=== PATIENT | female | born 1995 | race African-American/Black ===

== ENCOUNTER 2024-05-27 14:44 | Inpatient (IN) ==
[2024-05-27] MEDS ORDERED: LIDOCAINE 1% LOCAL 20 ML VIAL INFIL PRN (15:25)
[2024-05-27 15:33] LABS: Creatinine Urine Random 28.9 mg/dl; Total Protein Urine Random 57.5 mg/dl (0-11.9)
--- NOTE | 2024-05-27 15:34 | History & Physical Report ---
Date of Service May 27, 2024 Assessment & Plan (1) with 36 completed weeks gestation: (2) Pre-eclampsia during in third trimester, antepartum: Plan Fetus category one. Severe features per blood pressure. Plan to treat blood pressures acutely with IV labetolol and then start mag for seizure prophylaxis. Labs all returned normal except for pro/expanding machine operator was 2.0 . Haro bulb placed successfully for cervical ripening. Will start with low dose pitocin. bps imp roving with labetolol, will monitor closely. Plan discussed in detail with patient and fob. Patient and fob express understanding of the situation and recommendation for delivery given concern for severe features and concern for eclampsia. Discussed this risk at this ga is outweighed by the potential risk of prematurity for the baby. Peds aware. Questions asked and answered to the best of my ability. Discussed potential time line and variability of this. When she has pain can discuss options. she was hoping for an unmedicated delivery. Empathized with her feelings as none of what is happening was part of her plan for the delivery. History of Present Illness Chief Complaint: elevated blood pressure Primary Care Provider: Anahi Williamson MD Patient is a [id number] at 36 2/7 weeks who presents to labor and delivery from the office. Patient came in for her 36 week scheduled visit. Patient feels fine today but yesterday had a h/a , vision changes and n/v. Notes some slight increase in swelling. BP at the office was 172/100 with repeat after rest of 152/98. She dipped +2 protein. Here she continues to note that she feels well. Denies paris/vision changes/n/v/ruq pain. Notes some mild swelling. Dipped +2 here as well. Pr essures here at rest and lying in bed ranging 160-205/98-127. Labs are pending. Given severe pressures and ga of 36 2/7 weeks, plan for iol. Will treat blood pressure acutely with labetolol and start mag prophylaxis given severe blood pressures. Peds aware. GBS unknown and pending currently. and Delivery Plans Positive Syphilis Test (RPR) at NOB--titer 1:4 * Confirmatory test Negative * Repeat in 6 weeks & in 3rd Trimester--negative for both T pall AB neg 04/08, T pall fta-abs neg 12/06 adn 01/10 covid at 24wks--rec asa qd. OB Labs: Blood Type O Positive 11/16/23 Antibody Screen NEGATIVE 11/16/23 Hgb 11.2 g/dl (12.0-16.0) L 04/04/24 Hct 34.7 % (37.0-47.0) L 04/04/24 MCV 90.7 fL (80.0-100.0) 03/08/24 Plt Count 178 K/uL (130-400) 03/08/24 Rubella IgG Antibody Immune (Immune) 11/16/23 RPR Reactive (Nonreactive) A 11/16/23 Treponema pallidum Ab Negative (Negative) 04/04/24 T.pallidum Ab (FTA-ABS) Nonreactive (Nonreactive) 01/11/24 Hep Bs Antigen NON-REACTIVE (NON-REACTIVE) 11/16/23 Hepatitis C Ab (EIA) NON-REACTIVE (NON-REACTIVE) 11/16/23 HIV (1&2) Ag & Ab Conf NON-REACTIVE (NON-REACTIVE) 11/16/23 Glucose 1 Hr 50 gm 129 mg/dl (70-130) 04/04/24 OB Optional Labs: Chlamydia trachomatis RNA Not Detected (NotDetected) 11/16/23 Neisseria gonorrhoeae RNA Not Detected (NotDetected) 11/16/23 Allergies Allergy/AdvReac Type Severity Reaction Status Date / Time No Known Allergies Allergy Verified 05/27/24 13:23 Home Medications Medication Instructions Recorded Confirmed Type ddzpopzc-vtt-Ad-FA PO 11/08/23 05/27/24 History [ Plus] Patient History Medical History Varicella vaccination Positive test Missed Surgical History No pertinent past surgical history Family History Denies family history of Ovarian cancer Breast cancer Colorectal cancer Social History Smoking Status: Never smoker Second Hand Exposure: No; Do You Dip or Chew Tobacco: No; Hx Alcohol Use: No Hx Substance Use: No Preferred Language: [place] Communication Ability: Effective Production Line Worker Required: No Beliefs That Will Affect Care: None marital status: marital status details: Madi Mao (25) [phone] Current Living Situation: Spouse Current Living Situation Comment: Lives with spouse and mother in law, 1 dog current occupational status: employed current occupation: Daycare worker Other Information That Helps Us Care for You: No Feels Safe at Home: Yes Safety Concerns: Feels Safe At This Time Physical Exam Physical Exam: h/h 13/38.1, plts 196, urine pro/expanding machine operator 2.0, ast 18, alt 13, expanding machine operator 0.85 (0.62) Constitutional: WD/WN, vitals as above Cardiovascular: Extremities: + edema (tr); no calf tenderness Gastrointestinal (Abdomen): soft, nt, nd, no ruq tenderness Psychiatric: A+Ox3, euthymic affect Genitourinary: cx--ft/50/-2/firm/med toco--none efm--130s wtih mod variability, accels present to 150s, no decels Had discussed cervical ripening methods and patient is ok with haro bulb. r/b/se discussed. speculum placed, cx visualized, haro placed through cervix. Inflated with 30cc sterile water. Tolerated well. Results & Data Vital Signs (Past 12 Hours) Vital Signs Pulse BP 05/27/24 15:14 64 05/27/24 15:14 178/116 H 05/27/24 15:13 75 05/27/24 15:13 189/127 H 05/27/24 15:13 75 05/27/24 15:13 205/128 H 05/27/24 14:51 70 160/98 H Coding Level of Care Code None Diagnoses with 36 completed weeks gestation Z3A.36 Pre-eclampsia during in third trimester, antepartum O14.93 CPT Codes Misx Procedure Codes - 29028 Placement of cervical dilator: 17198 Placement of cervical dilator ([id number])
[2024-05-27] MEDS: LACTATED RINGER'S 1,000 ML IV SCH (15:35)
[2024-05-27] MEDS: LABETALOL HCL IV 5 MG/ML 20ML IV STA ×4 (15:35→18:31)
[2024-05-27] MEDS: MAGNESIUM SULFATE / WTR 40 GM/1,000 ML BAG IV SCH (15:37)
[2024-05-27] MEDS: MAG SULFATE 4GM BOLUS FROM BAG IV ONE (15:38)
[2024-05-27] MEDS: BETAMETH SOD PHOS/ACETATE IA 6 MG/ML ONE (15:39)
[2024-05-27] MEDS: BETAMETH SOD PHOS/ACETATE IA 6 MG/ML IM STA (15:40)
[2024-05-27] MEDS: MAGNESIUM SULFATE 40GM / WTR 1,000 ML BAG IV ONE (15:40)
[2024-05-27 15:41] LABS: Basophils # (auto) 0.05 K/uL (0.00-0.20); Basophils % (auto) 0.4 %; Eosinophils # (auto) 0.06 K/uL (0.00-0.50); Eosinophils % (auto) 0.5 %; Hematocrit (blood only) 38.1 % (37.0-47.0); Immature Granulocytes # (auto) 0.06 K/uL (0.01-0.20); Immature Granulocytes % (auto) 0.5 %; Lymphocytes # (auto) 2.68 K/uL (1.20-3.40); Lymphocytes % (auto) 23.5 %; Mean Corpuscular Hemoglobin 29.6 pg (25.0-34.0); Mean Corpuscular Hgb Conc 34.1 g/dL (32.0-36.0); Mean Corpuscular Volume 86.8 fL (80.0-100.0); Mean Platelet Volume 11.3 fL (9.4-12.4); Monocytes # (auto) 0.98 K/uL (0.11-0.59); Monocytes % (auto) 8.6 %; Neutrophils # (auto) 7.59 K/uL (1.40-6.50); Neutrophils % (auto) 66.5 %; Platelet Count 196 K/uL (130-400); RDW Coefficient of Variation 14.3 % (11.5-14.5); RDW Standard Deviation 45.3 fL (36.4-46.3); Red Blood Count 4.39 M/uL (4.20-5.40); White Blood Count 11.42 K/ul (4.8-10.8)
[2024-05-27] MEDS: LABETALOL HCL IV 5 MG/ML 20ML IV ONE (15:41)
[2024-05-27 15:47] LABS: Albumin Globulin Ratio 1.1 (0.9-2); Albumin Level 3.2 gm/dl (3.4-5.0); BUN Creatinine Ratio 16.5 (10-20); Bilirubin,Total 0.3 mg/dl (0.2-1.0); Calcium 8.9 mg/dl (8.6-10.3); Creatinine Clr Calc Pharmacy 115.8 ml/min; Globulin 2.9 gm/dl (2.5-4.0); Potassium 4.4 mmol/L (3.5-5.1); Total Protein 6.1 gm/dl (6.0-8.3)
[2024-05-27] MEDS: OXYTOCIN 30 UNITS/NSS 30 UNITS/500 ML BAG IV PRN (17:24)
[2024-05-27] MEDS: PENICILLIN GK 6 MU in SODIUM CHLORIDE 0.9% 250 ML IV STA (17:57)
[2024-05-27] MEDS: PENICILLIN GK 3 MU in DEXTROSE 5% 100 ML IV PRN (22:06)
[2024-05-27] MEDS ORDERED: ACETAMINOPHEN 325 MG TAB PO PRN (22:25)
--- NOTE | 2024-05-27 23:00 | Anesthesiology Consultation ---
Date of Service May 27, 2024 Assessment & Plan (1) Encounter for pre-operative examination: Chart Review Chart Review: Acceptable Risk for Labor Epidural History Height/Weight Height: 5 ft 8 in Weight: 90.265 kg Allergies Allergy/AdvReac Type Severity Reaction Status Date / Time No Known Allergies Allergy Verified 05/27/24 13:23 Medications Home Medications Medication Instructions Recorded Confirmed Last Taken qldcavpp-jbx-Mh-FA PO 11/08/23 05/27/24 Unknown [ Plus] Active Medications Generic Name Dose Route Start Last Admin Trade Name Freq PRN Reason Stop Dose Admin Magnesium Sulfate 40 gm in 1,000 mls @ 50 mls/hr 05/27/24 15:30 05/27/24 15:57 Magnesium Sulfate / Wtr IV 06/26/24 15:29 50 mls/hr .Q20H ELI Infusion Lactated Ringer's 1,000 mls @ 75 mls/hr 05/27/24 16:00 05/27/24 19:03 Lr IV 05/28/24 15:59 75 mls/hr .[id number] ELI Infusion Oxytocin 30 units in 500 mls @ 9 mls/hr 05/27/24 16:54 05/27/24 22:35 Pitocin 30 Units/Nss IV 05/29/24 16:53 0.54 units/hr .Q24H PRN 9 mls/hr Labor Induction/Augmentation Titration Protocol 0.54 UNITS/HR Penicillin G Potassium 3 mu/ 106 mls @ 100 mls/hr 05/27/24 19:54 05/27/24 22:06 Dextrose IV 06/06/24 19:53 100 mls/hr Q4H PRN Administration GBS(+) Until Delivery Past Medical History Medical History (Updated 05/27/24 @ 23:00 by Sanket Ritchie MD) Pre-eclampsia during in third trimester, antepartum Varicella vaccination Missed Past Family History Family History Denies family history of Ovarian cancer Breast cancer Colorectal cancer Past Surgical History Surgical History No pertinent past surgical history Social History Smoking Status: Never smoker Do You Dip or Chew Tobacco: No Hx Alcohol Use: No Hx Substance Use: No Physical Exam Vital Signs Last Vital Signs Temp 36.8 C 05/27/24 19:10 Pulse 84 05/27/24 22:53 Resp 20 05/27/24 22:05 BP 139/88 05/27/24 22:39 Pulse Ox 98 05/27/24 22:53 Testing Laboratory Results 05/27/24 15:19 05/27/24 15:19
[2024-05-27] MEDS: BUPIVACAINE 0.25% PF 30 ML VIAL ONE (23:32)
[2024-05-27] MEDS: fentaNYL citrate PF 100 MCG/2 ML VIAL ONE (23:32)
[2024-05-27] MEDS: fentANYL 2 MCG/ML BUPIVacaine 0.125%-NSS 100ML BAG ONE (23:32)
[2024-05-27] MEDS ORDERED: ePHEDrine sulfate 50 MG/ML AMP IV PRN (23:43)
[2024-05-27] MEDS ORDERED: NALOXONE HCL 1 MG in SODIUM CHLORIDE 0.9% 1,000 ML IV PRN (23:43)
[2024-05-27] MEDS ORDERED: LIDOCAINE 2% MPF LOCAL 5 ML VIAL EPI PRN (23:43)
[2024-05-27] MEDS ORDERED: ROPIVACAINE 0.5% PF 5 MG/ML 20 ML VIAL EPI PRN (23:43)
[2024-05-27] MEDS ORDERED: BUPIVACAINE 0.25% PF 30 ML VIAL EPI PRN (23:43)
[2024-05-27] MEDS ORDERED: fentaNYL citrate PF 100 MCG/2 ML VIAL EPI PRN (23:43)
[2024-05-27] MEDS ORDERED: NALOXONE HCL 0.4 MG/1 ML VIAL/CARP IV PRN (23:43)
[2024-05-27] MEDS ORDERED: SODIUM CHLORIDE 0.9% PF INJ 10 ML VIAL EPI PRN (23:43)
[2024-05-27] MEDS: LIDOCAINE 2%/EPINEPHRINE 1:200,000 20 ML PF ONE (23:45)
[2024-05-27] MEDS: ePHEDrine sulfate 50 MG/ML AMP ONE (23:45)
[2024-05-28] MEDS: ONDANSETRON INJ 2 MG/ML 2 ML VIAL IV PRN (00:04)
--- NOTE | 2024-05-28 00:36 | Labor Progress Brief Note ---
Date of Service May 28, 2024 Subjective got epidural , having n/v Assessment & Plan (1) Preeclampsia: Plan had some n/v with epidural that is slowly responding to antiemetics. bps did drop a little. fhr changes c/w this. Balloon has fallen out. will check cervix once patient improves, consider arom. Admission and Anticipated Discharge Date Admission Date: May 27, 2024 Physical Exam Physical Exam: toco--q2-4, pit at 9 prior to epidural, more irregular since epidural efm--120s with min to mod variability, variable type of decels with episodes of vomiting Results & Data Vital Signs (Past 12 Hours) Vital Signs Temp Pulse Resp BP Pulse Ox 05/28/24 00:28 75 94 05/28/24 00:23 74 139/84 94 05/28/24 00:21 96 H 93 05/28/24 00:19 80 124/77 05/28/24 00:18 81 97 05/28/24 00:15 69 125/69 05/28/24 00:13 71 95 05/28/24 00:09 85 132/51 L 94 05/28/24 00:08 74 97 05/28/24 00:05 82 129/74 05/28/24 00:03 94 H 96 05/28/24 00:02 101 H 93 05/27/24 23:59 71 05/27/24 23:59 115/68 05/27/24 23:58 98 05/27/24 23:58 75 05/27/24 23:53 97 05/27/24 23:53 72 05/27/24 23:53 120/76 05/27/24 23:51 76 05/27/24 23:51 124/78 05/27/24 23:49 84 05/27/24 23:49 124/74 05/27/24 23:48 97 05/27/24 23:48 84 05/27/24 23:47 90 05/27/24 23:47 122/67 05/27/24 23:45 78 05/27/24 23:45 118/71 05/27/24 23:43 96 05/27/24 23:43 74 05/27/24 23:43 74 05/27/24 23:43 130/76 05/27/24 23:42 94 05/27/24 23:42 75 05/27/24 23:41 86 05/27/24 23:41 121/75 05/27/24 23:39 80 05/27/24 23:39 119/77 05/27/24 23:38 98 05/27/24 23:38 85 05/27/24 23:37 92 H 05/27/24 23:37 115/73 05/27/24 23:35 76 05/27/24 23:35 94/54 L 05/27/24 23:33 98 05/27/24 23:33 79 05/27/24 23:33 89 05/27/24 23:33 104/59 L 05/27/24 23:30 82 05/27/24 23:30 122/80 05/27/24 23:28 97 05/27/24 23:28 84 05/27/24 23:23 98 05/27/24 23:23 86 05/27/24 23:18 98 05/27/24 23:18 82 05/27/24 23:13 97 05/27/24 23:13 84 05/27/24 23:09 80 05/27/24 23:09 155/96 H 05/27/24 23:08 98 05/27/24 23:08 82 05/27/24 23:03 98 05/27/24 23:03 76 05/27/24 22:58 97 05/27/24 22:58 76 05/27/24 22:53 98 05/27/24 22:53 84 05/27/24 22:48 98 05/27/24 22:48 83 05/27/24 22:43 98 05/27/24 22:43 100 H 05/27/24 22:39 74 05/27/24 22:39 139/88 05/27/24 22:38 97 05/27/24 22:38 75 05/27/24 22:33 97 05/27/24 22:33 77 05/27/24 22:28 97 05/27/24 22:28 75 05/27/24 22:23 98 05/27/24 22:23 81 05/27/24 22:18 98 05/27/24 22:18 82 05/27/24 22:13 98 05/27/24 22:13 83 05/27/24 22:08 97 05/27/24 22:08 81 05/27/24 22:08 78 05/27/24 22:08 132/88 05/27/24 22:05 20 05/27/24 22:03 96 05/27/24 22:03 79 05/27/24 21:58 97 05/27/24 21:58 78 05/27/24 21:53 98 05/27/24 21:53 79 05/27/24 21:48 97 05/27/24 21:48 86 05/27/24 21:43 98 05/27/24 21:43 86 05/27/24 21:38 97 05/27/24 21:38 79 05/27/24 21:38 155/94 H 05/27/24 21:33 95 05/27/24 21:33 86 05/27/24 21:28 96 05/27/24 21:28 82 05/27/24 21:23 98 05/27/24 21:23 82 05/27/24 21:18 98 05/27/24 21:18 77 05/27/24 21:13 97 05/27/24 21:13 76 05/27/24 21:08 96 05/27/24 21:08 81 05/27/24 21:08 134/92 05/27/24 21:05 18 05/27/24 21:03 97 05/27/24 21:03 79 05/27/24 20:58 97 05/27/24 20:58 78 05/27/24 20:53 97 05/27/24 20:53 77 05/27/24 20:48 98 05/27/24 20:48 80 05/27/24 20:43 98 05/27/24 20:43 77 05/27/24 20:39 72 05/27/24 20:39 145/95 H 05/27/24 20:38 98 05/27/24 20:38 80 05/27/24 20:33 97 05/27/24 20:33 81 05/27/24 20:28 98 05/27/24 20:28 76 05/27/24 20:23 96 05/27/24 20:23 81 05/27/24 20:18 98 05/27/24 20:18 78 05/27/24 20:13 97 05/27/24 20:13 79 05/27/24 20:08 97 05/27/24 20:08 80 05/27/24 20:08 139/94 05/27/24 20:05 18 05/27/24 20:03 98 05/27/24 20:03 80 05/27/24 19:58 97 05/27/24 19:58 73 05/27/24 19:53 97 05/27/24 19:53 69 05/27/24 19:48 98 05/27/24 19:48 77 05/27/24 19:43 98 05/27/24 19:43 81 05/27/24 19:38 96 05/27/24 19:38 78 05/27/24 19:38 136/97 05/27/24 19:33 98 05/27/24 19:33 81 05/27/24 19:28 97 05/27/24 19:28 75 05/27/24 19:23 97 05/27/24 19:23 79 05/27/24 19:18 97 05/27/24 19:18 76 05/27/24 19:13 97 05/27/24 19:13 84 05/27/24 19:10 36.8 C 20 05/27/24 19:10 20 05/27/24 19:08 97 05/27/24 19:08 82 05/27/24 19:04 73 05/27/24 19:04 140/96 05/27/24 19:03 96 05/27/24 19:03 74 05/27/24 18:58 97 05/27/24 18:58 81 05/27/24 18:53 96 05/27/24 18:53 77 05/27/24 18:49 74 05/27/24 18:49 151/97 H 05/27/24 18:48 96 05/27/24 18:48 84 05/27/24 18:43 97 05/27/24 18:43 74 05/27/24 18:38 96 05/27/24 18:38 87 05/27/24 18:34 77 05/27/24 18:34 143/88 H 05/27/24 18:33 97 05/27/24 18:33 82 05/27/24 18:30 18 05/27/24 18:30 18 05/27/24 18:28 97 05/27/24 18:28 72 05/27/24 18:23 97 05/27/24 18:23 78 05/27/24 18:19 74 05/27/24 18:19 164/104 H 05/27/24 18:18 96 05/27/24 18:18 76 05/27/24 18:13 97 05/27/24 18:13 67 05/27/24 18:08 96 05/27/24 18:08 76 05/27/24 18:04 71 05/27/24 18:04 165/101 H 05/27/24 18:03 96 05/27/24 18:03 82 05/27/24 18:00 18 05/27/24 18:00 18 05/27/24 17:58 96 05/27/24 17:58 72 05/27/24 17:53 98 05/27/24 17:53 70 05/27/24 17:53 157/102 H 05/27/24 17:48 97 05/27/24 17:48 71 05/27/24 17:46 92 05/27/24 17:46 85 05/27/24 17:43 97 05/27/24 17:43 73 05/27/24 17:38 97 05/27/24 17:38 72 05/27/24 17:35 71 05/27/24 17:35 158/107 H 05/27/24 17:33 97 05/27/24 17:33 75 05/27/24 17:30 18 05/27/24 17:30 18 05/27/24 17:30 18 05/27/24 17:28 96 05/27/24 17:28 79 05/27/24 17:23 97 05/27/24 17:23 72 05/27/24 17:19 75 05/27/24 17:19 161/109 H 05/27/24 17:18 96 05/27/24 17:18 75 05/27/24 17:13 97 05/27/24 17:13 81 05/27/24 17:08 97 05/27/24 17:08 78 05/27/24 17:03 96 05/27/24 17:03 76 05/27/24 17:02 76 171/106 H 05/27/24 17:00 18 05/27/24 17:00 18 05/27/24 16:58 96 05/27/24 16:58 69 05/27/24 16:58 79 05/27/24 16:58 171/106 H 05/27/24 16:53 97 05/27/24 16:53 76 05/27/24 16:48 97 05/27/24 16:48 82 05/27/24 16:43 97 05/27/24 16:43 76 05/27/24 16:43 164/108 H 05/27/24 16:38 98 05/27/24 16:38 77 05/27/24 16:33 97 05/27/24 16:33 79 05/27/24 16:32 70 05/27/24 16:32 156/104 H 05/27/24 16:30 18 05/27/24 16:30 18 05/27/24 16:28 96 05/27/24 16:28 77 05/27/24 16:23 96 05/27/24 16:23 77 05/27/24 16:18 97 05/27/24 16:18 77 05/27/24 16:13 97 05/27/24 16:13 77 05/27/24 16:13 151/102 H 05/27/24 16:08 96 05/27/24 16:08 82 05/27/24 16:06 86 162/109 H 05/27/24 16:03 95 05/27/24 16:03 86 05/27/24 16:00 18 05/27/24 16:00 18 05/27/24 15:58 97 05/27/24 15:58 87 05/27/24 15:58 86 05/27/24 15:58 162/109 H 05/27/24 15:54 93 05/27/24 15:54 98 H 05/27/24 15:53 97 05/27/24 15:53 86 05/27/24 15:48 95 05/27/24 15:48 88 05/27/24 15:43 95 05/27/24 15:43 78 05/27/24 15:43 167/109 H 05/27/24 15:36 73 05/27/24 15:36 179/124 H 05/27/24 15:35 76 178/116 H 05/27/24 15:30 18 05/27/24 15:15 18 05/27/24 15:15 18 05/27/24 15:14 64 05/27/24 15:14 178/116 H 05/27/24 15:13 75 05/27/24 15:13 189/127 H 05/27/24 15:13 75 05/27/24 15:13 205/128 H 05/27/24 15:06 36.9 C 18 05/27/24 14:51 70 160/98 H Coding Level of Care Code None Diagnoses Preeclampsia O14.90
[2024-05-28] MEDS: BUPIVACAINE 0.25% PF 30 ML VIAL EPI STA (00:50)
[2024-05-28] MEDS: fentaNYL citrate PF 100 MCG/2 ML VIAL EPI STA (00:50)
[2024-05-28] MEDS: SODIUM CHLORIDE 0.9% PF INJ 10 ML VIAL ONE (00:51)
[2024-05-28] MEDS: LIDOCAINE 2%/EPINEPHRINE 1:200,000 20 ML PF EPI STA (00:51)
[2024-05-28] MEDS: SODIUM CHLORIDE 0.9% PF INJ 10 ML VIAL EPI STA (00:51)
--- NOTE | 2024-05-28 01:11 | Labor Progress Brief Note ---
Date of Service May 28, 2024 Subjective comfortable, no further emesis Assessment & Plan (1) Preeclampsia: Plan continue current plan. arom. good uop. fetus overall category one. does have some mad effect. doing well on mag. Admission and Anticipated Discharge Date Admission Date: May 27, 2024 Physical Exam Physical Exam: cx--4-5/80/-2 toco--q2-5min, pit at 9 efm--120s with min to mod variability, small accels , rare, small variable, +scalp stim arom--clear Results & Data Vital Signs (Past 12 Hours) Vital Signs Temp Pulse Resp BP Pulse Ox 05/28/24 01:03 81 97 05/28/24 00:58 78 96 05/28/24 00:54 76 124/71 05/28/24 00:53 76 97 05/28/24 00:48 74 96 05/28/24 00:43 77 97 05/28/24 00:40 78 131/79 05/28/24 00:38 84 97 05/28/24 00:33 89 97 05/28/24 00:28 75 94 05/28/24 00:23 74 139/84 94 05/28/24 00:21 96 H 93 05/28/24 00:19 80 124/77 05/28/24 00:18 81 97 05/28/24 00:15 69 125/69 05/28/24 00:13 71 95 05/28/24 00:10 22 05/28/24 00:10 36.8 C 05/28/24 00:09 85 132/51 L 94 05/28/24 00:08 74 97 05/28/24 00:05 82 129/74 05/28/24 00:03 94 H 96 05/28/24 00:02 101 H 93 05/27/24 23:59 71 05/27/24 23:59 115/68 05/27/24 23:58 98 05/27/24 23:58 75 05/27/24 23:53 97 05/27/24 23:53 72 05/27/24 23:53 120/76 05/27/24 23:51 76 05/27/24 23:51 124/78 05/27/24 23:49 84 05/27/24 23:49 124/74 05/27/24 23:48 97 05/27/24 23:48 84 05/27/24 23:47 90 05/27/24 23:47 122/67 05/27/24 23:45 78 05/27/24 23:45 118/71 05/27/24 23:43 96 05/27/24 23:43 74 05/27/24 23:43 74 05/27/24 23:43 130/76 05/27/24 23:42 94 05/27/24 23:42 75 05/27/24 23:41 86 05/27/24 23:41 121/75 05/27/24 23:39 80 05/27/24 23:39 119/77 05/27/24 23:38 98 05/27/24 23:38 85 05/27/24 23:37 92 H 05/27/24 23:37 115/73 05/27/24 23:35 76 05/27/24 23:35 94/54 L 05/27/24 23:33 98 05/27/24 23:33 79 05/27/24 23:33 89 05/27/24 23:33 104/59 L 05/27/24 23:30 82 05/27/24 23:30 122/80 05/27/24 23:28 97 05/27/24 23:28 84 05/27/24 23:23 98 05/27/24 23:23 86 05/27/24 23:18 98 05/27/24 23:18 82 05/27/24 23:13 97 05/27/24 23:13 84 05/27/24 23:09 80 05/27/24 23:09 155/96 H 05/27/24 23:08 98 05/27/24 23:08 82 05/27/24 23:05 20 05/27/24 23:03 98 05/27/24 23:03 76 05/27/24 22:58 97 05/27/24 22:58 76 05/27/24 22:53 98 05/27/24 22:53 84 05/27/24 22:48 98 05/27/24 22:48 83 05/27/24 22:43 98 05/27/24 22:43 100 H 05/27/24 22:39 74 05/27/24 22:39 139/88 05/27/24 22:38 97 05/27/24 22:38 75 05/27/24 22:33 97 05/27/24 22:33 77 05/27/24 22:28 97 05/27/24 22:28 75 05/27/24 22:23 98 05/27/24 22:23 81 05/27/24 22:18 98 05/27/24 22:18 82 05/27/24 22:13 98 05/27/24 22:13 83 05/27/24 22:08 97 05/27/24 22:08 81 05/27/24 22:08 78 05/27/24 22:08 132/88 05/27/24 22:05 20 05/27/24 22:03 96 05/27/24 22:03 79 05/27/24 21:58 97 05/27/24 21:58 78 05/27/24 21:53 98 05/27/24 21:53 79 05/27/24 21:48 97 05/27/24 21:48 86 05/27/24 21:43 98 05/27/24 21:43 86 05/27/24 21:38 97 05/27/24 21:38 79 05/27/24 21:38 155/94 H 05/27/24 21:33 95 05/27/24 21:33 86 05/27/24 21:28 96 05/27/24 21:28 82 05/27/24 21:23 98 05/27/24 21:23 82 05/27/24 21:18 98 05/27/24 21:18 77 05/27/24 21:13 97 05/27/24 21:13 76 05/27/24 21:08 96 05/27/24 21:08 81 05/27/24 21:08 134/92 05/27/24 21:05 18 05/27/24 21:03 97 05/27/24 21:03 79 05/27/24 20:58 97 05/27/24 20:58 78 05/27/24 20:53 97 05/27/24 20:53 77 05/27/24 20:48 98 05/27/24 20:48 80 05/27/24 20:43 98 05/27/24 20:43 77 05/27/24 20:39 72 05/27/24 20:39 145/95 H 05/27/24 20:38 98 05/27/24 20:38 80 05/27/24 20:33 97 05/27/24 20:33 81 05/27/24 20:28 98 05/27/24 20:28 76 05/27/24 20:23 96 05/27/24 20:23 81 05/27/24 20:18 98 05/27/24 20:18 78 05/27/24 20:13 97 05/27/24 20:13 79 05/27/24 20:08 97 05/27/24 20:08 80 05/27/24 20:08 139/94 05/27/24 20:05 18 05/27/24 20:03 98 05/27/24 20:03 80 05/27/24 19:58 97 05/27/24 19:58 73 05/27/24 19:53 97 05/27/24 19:53 69 05/27/24 19:48 98 05/27/24 19:48 77 05/27/24 19:43 98 05/27/24 19:43 81 05/27/24 19:38 96 05/27/24 19:38 78 05/27/24 19:38 136/97 05/27/24 19:33 98 05/27/24 19:33 81 05/27/24 19:28 97 05/27/24 19:28 75 05/27/24 19:23 97 05/27/24 19:23 79 05/27/24 19:18 97 05/27/24 19:18 76 05/27/24 19:13 97 05/27/24 19:13 84 05/27/24 19:10 36.8 C 20 05/27/24 19:10 20 05/27/24 19:08 97 05/27/24 19:08 82 05/27/24 19:04 73 05/27/24 19:04 140/96 05/27/24 19:03 96 05/27/24 19:03 74 05/27/24 18:58 97 05/27/24 18:58 81 05/27/24 18:53 96 05/27/24 18:53 77 05/27/24 18:49 74 05/27/24 18:49 151/97 H 05/27/24 18:48 96 05/27/24 18:48 84 05/27/24 18:43 97 05/27/24 18:43 74 05/27/24 18:38 96 05/27/24 18:38 87 05/27/24 18:34 77 05/27/24 18:34 143/88 H 05/27/24 18:33 97 05/27/24 18:33 82 05/27/24 18:30 18 05/27/24 18:30 18 05/27/24 18:28 97 05/27/24 18:28 72 05/27/24 18:23 97 05/27/24 18:23 78 05/27/24 18:19 74 05/27/24 18:19 164/104 H 05/27/24 18:18 96 05/27/24 18:18 76 05/27/24 18:13 97 05/27/24 18:13 67 05/27/24 18:08 96 05/27/24 18:08 76 05/27/24 18:04 71 05/27/24 18:04 165/101 H 05/27/24 18:03 96 05/27/24 18:03 82 05/27/24 18:00 18 05/27/24 18:00 18 05/27/24 17:58 96 05/27/24 17:58 72 05/27/24 17:53 98 05/27/24 17:53 70 05/27/24 17:53 157/102 H 05/27/24 17:48 97 05/27/24 17:48 71 05/27/24 17:46 92 05/27/24 17:46 85 05/27/24 17:43 97 05/27/24 17:43 73 05/27/24 17:38 97 05/27/24 17:38 72 05/27/24 17:35 71 05/27/24 17:35 158/107 H 05/27/24 17:33 97 05/27/24 17:33 75 05/27/24 17:30 18 05/27/24 17:30 18 05/27/24 17:30 18 05/27/24 17:28 96 05/27/24 17:28 79 05/27/24 17:23 97 05/27/24 17:23 72 05/27/24 17:19 75 05/27/24 17:19 161/109 H 05/27/24 17:18 96 05/27/24 17:18 75 05/27/24 17:13 97 05/27/24 17:13 81 05/27/24 17:08 97 05/27/24 17:08 78 05/27/24 17:03 96 05/27/24 17:03 76 05/27/24 17:02 76 171/106 H 05/27/24 17:00 18 05/27/24 17:00 18 05/27/24 16:58 96 05/27/24 16:58 69 05/27/24 16:58 79 05/27/24 16:58 171/106 H 05/27/24 16:53 97 05/27/24 16:53 76 05/27/24 16:48 97 05/27/24 16:48 82 05/27/24 16:43 97 05/27/24 16:43 76 05/27/24 16:43 164/108 H 05/27/24 16:38 98 05/27/24 16:38 77 05/27/24 16:33 97 05/27/24 16:33 79 05/27/24 16:32 70 05/27/24 16:32 156/104 H 05/27/24 16:30 18 05/27/24 16:30 18 05/27/24 16:28 96 05/27/24 16:28 77 05/27/24 16:23 96 05/27/24 16:23 77 05/27/24 16:18 97 05/27/24 16:18 77 05/27/24 16:13 97 05/27/24 16:13 77 05/27/24 16:13 151/102 H 05/27/24 16:08 96 05/27/24 16:08 82 05/27/24 16:06 86 162/109 H 05/27/24 16:03 95 05/27/24 16:03 86 05/27/24 16:00 18 05/27/24 16:00 18 05/27/24 15:58 97 05/27/24 15:58 87 05/27/24 15:58 86 05/27/24 15:58 162/109 H 05/27/24 15:54 93 05/27/24 15:54 98 H 05/27/24 15:53 97 05/27/24 15:53 86 05/27/24 15:48 95 05/27/24 15:48 88 05/27/24 15:43 95 05/27/24 15:43 78 05/27/24 15:43 167/109 H 05/27/24 15:36 73 05/27/24 15:36 179/124 H 05/27/24 15:35 76 178/116 H 05/27/24 15:30 18 05/27/24 15:15 18 05/27/24 15:15 18 05/27/24 15:14 64 05/27/24 15:14 178/116 H 05/27/24 15:13 75 05/27/24 15:13 189/127 H 05/27/24 15:13 75 05/27/24 15:13 205/128 H 05/27/24 15:06 36.9 C 18 05/27/24 14:51 70 160/98 H Coding Level of Care Code None Diagnoses Preeclampsia O14.90
--- NOTE | 2024-05-28 06:21 | Labor Progress Brief Note ---
Date of Service May 28, 2024 Subjective Patient resting comfortably. BPs much improved. Assessment & Plan (1) Preeclampsia: Plan Continue current plan. Not in a good contraction pattern as of yet. Fetus overall can be category two likely secondary to the mag effect, does have periods of better variability, and very small accels. Continue to monitor closely. Tolerating mag, pressures much improved. Admission and Anticipated Discharge Date Admission Date: May 27, 2024 Physical Exam Physical Exam: cx--4-5/80/-2 toco--q2-4, pit at 18 efm--120s with min to mod variaiblity, occasional 10x10, occasional small variable Results & Data Vital Signs (Past 12 Hours) Vital Signs Temp Pulse Resp BP Pulse Ox 05/28/24 06:13 74 97 05/28/24 06:09 82 132/68 05/28/24 06:08 79 97 05/28/24 06:05 18 05/28/24 06:03 81 96 05/28/24 06:00 36.5 C 05/28/24 05:58 79 95 05/28/24 05:54 81 130/60 05/28/24 05:53 77 96 05/28/24 05:48 86 97 05/28/24 05:43 75 96 05/28/24 05:39 85 122/69 05/28/24 05:38 75 95 05/28/24 05:33 78 96 05/28/24 05:28 80 97 05/28/24 05:25 75 118/67 05/28/24 05:23 72 94 05/28/24 05:20 16 05/28/24 05:18 69 96 05/28/24 05:13 65 94 05/28/24 05:09 73 112/64 05/28/24 05:08 70 95 05/28/24 05:03 74 95 05/28/24 04:58 69 96 05/28/24 04:55 77 119/68 05/28/24 04:53 69 95 05/28/24 04:48 70 95 05/28/24 04:43 67 96 05/28/24 04:39 71 113/61 05/28/24 04:38 66 95 05/28/24 04:33 67 94 05/28/24 04:28 67 95 05/28/24 04:24 66 114/63 05/28/24 04:23 69 95 05/28/24 04:20 22 05/28/24 04:18 69 94 05/28/24 04:13 82 97 05/28/24 04:10 100 H 114/81 05/28/24 04:08 81 95 05/28/24 04:03 84 96 05/28/24 04:00 36.5 C 05/28/24 03:58 77 97 05/28/24 03:55 88 124/84 05/28/24 03:53 100 H 97 05/28/24 03:48 82 97 05/28/24 03:43 90 98 05/28/24 03:38 86 98 05/28/24 03:33 75 94 05/28/24 03:30 20 05/28/24 03:28 71 96 05/28/24 03:25 68 118/67 05/28/24 03:23 70 95 05/28/24 03:18 75 97 05/28/24 03:13 75 97 05/28/24 03:09 68 115/67 05/28/24 03:08 73 95 05/28/24 03:03 73 98 05/28/24 02:58 90 97 05/28/24 02:54 80 121/71 05/28/24 02:53 74 96 05/28/24 02:48 82 96 05/28/24 02:43 77 95 05/28/24 02:40 75 123/76 05/28/24 02:38 86 96 05/28/24 02:33 82 97 05/28/24 02:28 76 95 05/28/24 02:24 83 128/71 05/28/24 02:23 79 96 05/28/24 02:18 76 97 05/28/24 02:13 76 97 05/28/24 02:10 18 05/28/24 02:10 36.5 C 05/28/24 02:09 77 129/67 05/28/24 02:08 85 98 05/28/24 02:03 78 97 05/28/24 01:58 79 97 05/28/24 01:54 76 118/64 05/28/24 01:53 75 97 05/28/24 01:48 83 97 05/28/24 01:43 68 94 05/28/24 01:40 73 124/64 05/28/24 01:38 73 95 05/28/24 01:33 70 95 05/28/24 01:28 77 95 05/28/24 01:24 76 127/58 L 05/28/24 01:23 78 96 05/28/24 01:18 69 95 05/28/24 01:13 76 97 05/28/24 01:10 69 116/61 05/28/24 01:08 74 97 05/28/24 01:05 20 05/28/24 01:03 81 97 05/28/24 00:58 78 96 05/28/24 00:54 76 124/71 05/28/24 00:53 76 97 05/28/24 00:48 74 96 05/28/24 00:43 77 97 05/28/24 00:40 78 131/79 05/28/24 00:38 84 97 05/28/24 00:33 89 97 05/28/24 00:28 75 94 05/28/24 00:23 74 139/84 94 05/28/24 00:21 96 H 93 05/28/24 00:19 80 124/77 05/28/24 00:18 81 97 05/28/24 00:15 69 125/69 05/28/24 00:13 71 95 05/28/24 00:10 22 05/28/24 00:10 36.8 C 05/28/24 00:09 85 132/51 L 94 05/28/24 00:08 74 97 05/28/24 00:05 82 129/74 05/28/24 00:03 94 H 96 05/28/24 00:02 101 H 93 05/27/24 23:59 71 05/27/24 23:59 115/68 05/27/24 23:58 98 05/27/24 23:58 75 05/27/24 23:53 97 05/27/24 23:53 72 05/27/24 23:53 120/76 05/27/24 23:51 76 05/27/24 23:51 124/78 05/27/24 23:49 84 05/27/24 23:49 124/74 05/27/24 23:48 97 05/27/24 23:48 84 05/27/24 23:47 90 05/27/24 23:47 122/67 05/27/24 23:45 78 05/27/24 23:45 118/71 05/27/24 23:43 96 05/27/24 23:43 74 05/27/24 23:43 74 05/27/24 23:43 130/76 05/27/24 23:42 94 05/27/24 23:42 75 05/27/24 23:41 86 05/27/24 23:41 121/75 05/27/24 23:39 80 05/27/24 23:39 119/77 05/27/24 23:38 98 05/27/24 23:38 85 05/27/24 23:37 92 H 05/27/24 23:37 115/73 05/27/24 23:35 76 05/27/24 23:35 94/54 L 05/27/24 23:33 98 05/27/24 23:33 79 05/27/24 23:33 89 05/27/24 23:33 104/59 L 05/27/24 23:30 82 05/27/24 23:30 122/80 05/27/24 23:28 97 05/27/24 23:28 84 05/27/24 23:23 98 05/27/24 23:23 86 05/27/24 23:18 98 05/27/24 23:18 82 05/27/24 23:13 97 05/27/24 23:13 84 05/27/24 23:09 80 05/27/24 23:09 155/96 H 05/27/24 23:08 98 05/27/24 23:08 82 05/27/24 23:05 20 05/27/24 23:03 98 05/27/24 23:03 76 05/27/24 22:58 97 05/27/24 22:58 76 05/27/24 22:53 98 05/27/24 22:53 84 05/27/24 22:48 98 05/27/24 22:48 83 05/27/24 22:43 98 05/27/24 22:43 100 H 05/27/24 22:39 74 05/27/24 22:39 139/88 05/27/24 22:38 97 05/27/24 22:38 75 05/27/24 22:33 97 05/27/24 22:33 77 05/27/24 22:28 97 05/27/24 22:28 75 05/27/24 22:23 98 05/27/24 22:23 81 05/27/24 22:18 98 05/27/24 22:18 82 05/27/24 22:13 98 05/27/24 22:13 83 05/27/24 22:08 97 05/27/24 22:08 81 05/27/24 22:08 78 05/27/24 22:08 132/88 05/27/24 22:05 20 05/27/24 22:03 96 05/27/24 22:03 79 05/27/24 21:58 97 05/27/24 21:58 78 05/27/24 21:53 98 05/27/24 21:53 79 05/27/24 21:48 97 05/27/24 21:48 86 05/27/24 21:43 98 05/27/24 21:43 86 05/27/24 21:38 97 05/27/24 21:38 79 05/27/24 21:38 155/94 H 05/27/24 21:33 95 05/27/24 21:33 86 05/27/24 21:28 96 05/27/24 21:28 82 05/27/24 21:23 98 05/27/24 21:23 82 05/27/24 21:18 98 05/27/24 21:18 77 05/27/24 21:13 97 05/27/24 21:13 76 05/27/24 21:08 96 05/27/24 21:08 81 05/27/24 21:08 134/92 05/27/24 21:05 18 05/27/24 21:03 97 05/27/24 21:03 79 05/27/24 20:58 97 05/27/24 20:58 78 05/27/24 20:53 97 05/27/24 20:53 77 05/27/24 20:48 98 05/27/24 20:48 80 05/27/24 20:43 98 05/27/24 20:43 77 05/27/24 20:39 72 05/27/24 20:39 145/95 H 05/27/24 20:38 98 05/27/24 20:38 80 05/27/24 20:33 97 05/27/24 20:33 81 05/27/24 20:28 98 05/27/24 20:28 76 05/27/24 20:23 96 05/27/24 20:23 81 05/27/24 20:18 98 05/27/24 20:18 78 05/27/24 20:13 97 05/27/24 20:13 79 05/27/24 20:08 97 05/27/24 20:08 80 05/27/24 20:08 139/94 05/27/24 20:05 18 05/27/24 20:03 98 05/27/24 20:03 80 05/27/24 19:58 97 05/27/24 19:58 73 05/27/24 19:53 97 05/27/24 19:53 69 05/27/24 19:48 98 05/27/24 19:48 77 05/27/24 19:43 98 05/27/24 19:43 81 05/27/24 19:38 96 05/27/24 19:38 78 05/27/24 19:38 136/97 05/27/24 19:33 98 05/27/24 19:33 81 05/27/24 19:28 97 05/27/24 19:28 75 05/27/24 19:23 97 05/27/24 19:23 79 05/27/24 19:18 97 05/27/24 19:18 76 05/27/24 19:13 97 05/27/24 19:13 84 05/27/24 19:10 36.8 C 20 05/27/24 19:10 20 05/27/24 19:08 97 05/27/24 19:08 82 05/27/24 19:04 73 05/27/24 19:04 140/96 05/27/24 19:03 96 05/27/24 19:03 74 05/27/24 18:58 97 05/27/24 18:58 81 05/27/24 18:53 96 05/27/24 18:53 77 05/27/24 18:49 74 05/27/24 18:49 151/97 H 05/27/24 18:48 96 05/27/24 18:48 84 05/27/24 18:43 97 05/27/24 18:43 74 05/27/24 18:38 96 05/27/24 18:38 87 05/27/24 18:34 77 05/27/24 18:34 143/88 H 05/27/24 18:33 97 05/27/24 18:33 82 05/27/24 18:30 18 05/27/24 18:30 18 05/27/24 18:28 97 05/27/24 18:28 72 05/27/24 18:23 97 05/27/24 18:23 78 05/27/24 18:19 74 05/27/24 18:19 164/104 H Coding Level of Care Code None Diagnoses Preeclampsia O14.90
[2024-05-28] MEDS: fentANYL 2 MCG/ML BUPIVacaine 0.125%-NSS 100ML BAG EPI PRN (09:17)
[2024-05-28] MEDS: COUGH DROP (SUGAR FREE) LOZ 24 LOZ/1 BOX BUCCAL ONE (11:58)
--- NOTE | 2024-05-28 15:09 | Labor Progress Brief Note ---
Date of Service May 28, 2024 Subjective Reason For Note: Monitor Concern Pitocin currently on 30 milliunits for 2 hours. IUPC shows adequate contractions every 2 to 3 minutes. heart rate tracing baseline continues to be with minimal ihxj-yy-jswc variability and now there are late decelerations consistently for the last half an hour. There is still an occasional acceleration but they are sporadic. Cervix exam: 6 cm/80%/-2 Blood pressures have been reassuring. Assessment & Plan (1) Non-reassuring heart rate with late deceleration: Plan: Cervical exam is unchanged at 30 milliunits of Pitocin- and there have been adequate contractions for the last 90 minutes. Now with nonreassuring heart rate pattern. Will proceed with low transverse section. Procedures discussed with patient and family in the reasons for moving ahead with section and they are willing to proceed after all questions were answered to their satisfaction. Admission and Anticipated Discharge Date Admission Date: May 27, 2024 Results & Data Vital Signs (Past 12 Hours) Vital Signs Temp Pulse Resp BP Pulse Ox O2 Del Method 05/28/24 14:58 68 96 05/28/24 14:53 68 96 05/28/24 14:48 69 96 05/28/24 14:43 73 95 05/28/24 14:38 70 96 05/28/24 14:33 85 98 05/28/24 14:28 87 96 05/28/24 14:23 70 96 05/28/24 14:18 81 97 05/28/24 14:13 98 H 97 05/28/24 14:08 97 H 98 05/28/24 14:03 89 96 05/28/24 14:00 18 05/28/24 13:58 98 H 98 05/28/24 13:53 77 97 05/28/24 13:48 85 97 05/28/24 13:43 104 H 99 05/28/24 13:38 75 95 05/28/24 13:34 81 121/71 05/28/24 13:33 83 97 05/28/24 13:28 82 96 05/28/24 13:23 79 96 05/28/24 13:18 74 95 05/28/24 13:13 74 95 05/28/24 13:08 74 96 05/28/24 13:03 78 96 05/28/24 13:00 18 05/28/24 12:58 75 96 05/28/24 12:53 79 97 05/28/24 12:48 75 97 05/28/24 12:43 79 97 05/28/24 12:38 84 97 05/28/24 12:36 79 119/72 05/28/24 12:35 80 142/94 H 05/28/24 12:34 85 133/95 05/28/24 12:33 81 97 05/28/24 12:28 80 98 05/28/24 12:23 86 98 05/28/24 12:18 80 98 05/28/24 12:13 101 H 98 05/28/24 12:08 69 96 05/28/24 12:03 79 97 05/28/24 12:00 20 05/28/24 12:00 97.7 F 05/28/24 11:58 86 98 05/28/24 11:53 76 98 05/28/24 11:48 82 98 05/28/24 11:43 98 H 98 05/28/24 11:38 74 96 05/28/24 11:33 68 113/57 L 96 05/28/24 11:28 76 98 05/28/24 11:23 107 H 98 05/28/24 11:18 84 99 05/28/24 11:13 94 H 100 05/28/24 11:08 84 99 05/28/24 11:03 107 H 98 05/28/24 11:00 18 05/28/24 10:58 72 97 05/28/24 10:53 73 97 05/28/24 10:48 75 98 05/28/24 10:43 76 98 05/28/24 10:38 81 99 05/28/24 10:33 81 98 05/28/24 10:28 75 96 05/28/24 10:25 81 125/74 05/28/24 10:23 77 99 05/28/24 10:18 79 98 05/28/24 10:13 83 97 05/28/24 10:10 78 171/94 H 05/28/24 10:08 79 99 05/28/24 10:03 77 98 05/28/24 10:00 18 05/28/24 09:58 81 98 05/28/24 09:54 75 123/77 05/28/24 09:53 78 99 05/28/24 09:48 78 98 05/28/24 09:47 97.7 F 05/28/24 09:43 80 98 05/28/24 09:40 76 122/80 05/28/24 09:38 72 98 05/28/24 09:33 75 97 05/28/24 09:28 69 97 05/28/24 09:27 16 05/28/24 09:24 68 137/77 05/28/24 09:23 71 94 05/28/24 09:18 66 95 05/28/24 09:13 66 97 05/28/24 09:09 66 118/66 05/28/24 09:08 65 95 05/28/24 09:03 67 96 05/28/24 08:58 66 95 05/28/24 08:54 67 119/67 05/28/24 08:53 69 95 05/28/24 08:48 63 95 05/28/24 08:43 65 96 05/28/24 08:40 67 116/67 05/28/24 08:38 68 95 05/28/24 08:33 68 96 05/28/24 08:30 16 05/28/24 08:28 66 97 05/28/24 08:24 71 122/69 05/28/24 08:23 70 99 05/28/24 08:18 73 97 05/28/24 08:13 73 97 05/28/24 08:10 83 133/72 05/28/24 08:08 81 97 05/28/24 08:03 90 95 05/28/24 07:58 79 97 05/28/24 07:55 80 133/82 05/28/24 07:53 77 96 05/28/24 07:48 80 95 05/28/24 07:43 82 97 05/28/24 07:39 83 135/78 05/28/24 07:38 84 95 05/28/24 07:33 84 97 05/28/24 07:28 82 98 05/28/24 07:24 97.7 F 18 05/28/24 07:24 16 05/28/24 07:24 Room Air 05/28/24 07:24 77 133/63 05/28/24 07:23 74 95 05/28/24 07:18 77 96 05/28/24 07:13 79 97 05/28/24 07:09 83 126/64 05/28/24 07:08 72 94 05/28/24 07:03 76 94 05/28/24 06:58 74 95 05/28/24 06:54 73 122/64 05/28/24 06:53 72 95 05/28/24 06:48 70 95 05/28/24 06:43 81 96 05/28/24 06:39 73 121/64 05/28/24 06:38 70 95 05/28/24 06:33 72 94 05/28/24 06:28 73 95 05/28/24 06:25 75 121/68 05/28/24 06:23 70 95 05/28/24 06:18 72 94 05/28/24 06:13 74 97 05/28/24 06:09 82 132/68 05/28/24 06:08 79 97 05/28/24 06:05 18 05/28/24 06:03 81 96 05/28/24 06:00 97.7 F 05/28/24 05:58 79 95 05/28/24 05:54 81 130/60 05/28/24 05:53 77 96 05/28/24 05:48 86 97 05/28/24 05:43 75 96 05/28/24 05:39 85 122/69 05/28/24 05:38 75 95 05/28/24 05:33 78 96 05/28/24 05:28 80 97 05/28/24 05:25 75 118/67 05/28/24 05:23 72 94 05/28/24 05:20 16 05/28/24 05:18 69 96 05/28/24 05:13 65 94 05/28/24 05:09 73 112/64 05/28/24 05:08 70 95 05/28/24 05:03 74 95 05/28/24 04:58 69 96 05/28/24 04:55 77 119/68 05/28/24 04:53 69 95 05/28/24 04:48 70 95 05/28/24 04:43 67 96 05/28/24 04:39 71 113/61 05/28/24 04:38 66 95 05/28/24 04:33 67 94 05/28/24 04:28 67 95 05/28/24 04:24 66 114/63 05/28/24 04:23 69 95 05/28/24 04:20 22 05/28/24 04:18 69 94 05/28/24 04:13 82 97 05/28/24 04:10 100 H 114/81 05/28/24 04:08 81 95 05/28/24 04:03 84 96 05/28/24 04:00 97.7 F 05/28/24 03:58 77 97 05/28/24 03:55 88 124/84 05/28/24 03:53 100 H 97 05/28/24 03:48 82 97 05/28/24 03:43 90 98 05/28/24 03:38 86 98 05/28/24 03:33 75 94 05/28/24 03:30 20 05/28/24 03:28 71 96 05/28/24 03:25 68 118/67 05/28/24 03:23 70 95 05/28/24 03:18 75 97 05/28/24 03:13 75 97 05/28/24 03:09 68 115/67 05/28/24 03:08 73 95 Coding Level of Care Code 56353 SUB INP/OBS CARE 08/09MIN Diagnoses Non-reassuring heart rate with late deceleration O36.8390
--- NOTE | 2024-05-28 15:22 | Obstetrical Progress Note ---
Date of Service May 28, 2024 Assessment & Plan Admission and Anticipated Discharge Date Admission Date: May 27, 2024 Subjective now that she has been placed on her left side, the late decels are now resolved and is now having accels with contractions. will hold on proceeding with LTCS for now. Results & Data Vital Signs (Past 12 Hours) Vital Signs Temp Pulse Resp BP Pulse Ox O2 Del Method 05/28/24 15:18 68 96 05/28/24 15:15 71 121/72 05/28/24 15:13 71 97 05/28/24 15:08 73 97 05/28/24 15:03 77 97 05/28/24 14:58 68 96 05/28/24 14:53 68 96 05/28/24 14:48 69 96 05/28/24 14:43 73 95 05/28/24 14:38 70 96 05/28/24 14:33 85 98 05/28/24 14:28 87 96 05/28/24 14:23 70 96 05/28/24 14:18 81 97 05/28/24 14:13 98 H 97 05/28/24 14:08 97 H 98 05/28/24 14:03 89 96 05/28/24 14:00 18 05/28/24 13:58 98 H 98 05/28/24 13:53 77 97 05/28/24 13:48 85 97 05/28/24 13:43 104 H 99 05/28/24 13:38 75 95 05/28/24 13:34 81 121/71 05/28/24 13:33 83 97 05/28/24 13:28 82 96 05/28/24 13:23 79 96 05/28/24 13:18 74 95 05/28/24 13:13 74 95 05/28/24 13:08 74 96 05/28/24 13:03 78 96 05/28/24 13:00 18 05/28/24 12:58 75 96 05/28/24 12:53 79 97 05/28/24 12:48 75 97 05/28/24 12:43 79 97 05/28/24 12:38 84 97 05/28/24 12:36 79 119/72 05/28/24 12:35 80 142/94 H 05/28/24 12:34 85 133/95 05/28/24 12:33 81 97 05/28/24 12:28 80 98 05/28/24 12:23 86 98 05/28/24 12:18 80 98 05/28/24 12:13 101 H 98 05/28/24 12:08 69 96 05/28/24 12:03 79 97 05/28/24 12:00 20 05/28/24 12:00 97.7 F 05/28/24 11:58 86 98 05/28/24 11:53 76 98 05/28/24 11:48 82 98 05/28/24 11:43 98 H 98 05/28/24 11:38 74 96 05/28/24 11:33 68 113/57 L 96 05/28/24 11:28 76 98 05/28/24 11:23 107 H 98 05/28/24 11:18 84 99 05/28/24 11:13 94 H 100 05/28/24 11:08 84 99 05/28/24 11:03 107 H 98 05/28/24 11:00 18 05/28/24 10:58 72 97 05/28/24 10:53 73 97 05/28/24 10:48 75 98 05/28/24 10:43 76 98 05/28/24 10:38 81 99 05/28/24 10:33 81 98 05/28/24 10:28 75 96 05/28/24 10:25 81 125/74 05/28/24 10:23 77 99 05/28/24 10:18 79 98 05/28/24 10:13 83 97 05/28/24 10:10 78 171/94 H 05/28/24 10:08 79 99 05/28/24 10:03 77 98 05/28/24 10:00 18 05/28/24 09:58 81 98 05/28/24 09:54 75 123/77 05/28/24 09:53 78 99 05/28/24 09:48 78 98 05/28/24 09:47 97.7 F 05/28/24 09:43 80 98 05/28/24 09:40 76 122/80 05/28/24 09:38 72 98 05/28/24 09:33 75 97 05/28/24 09:28 69 97 05/28/24 09:27 16 05/28/24 09:24 68 137/77 05/28/24 09:23 71 94 05/28/24 09:18 66 95 05/28/24 09:13 66 97 05/28/24 09:09 66 118/66 05/28/24 09:08 65 95 05/28/24 09:03 67 96 05/28/24 08:58 66 95 05/28/24 08:54 67 119/67 05/28/24 08:53 69 95 05/28/24 08:48 63 95 05/28/24 08:43 65 96 05/28/24 08:40 67 116/67 05/28/24 08:38 68 95 05/28/24 08:33 68 96 05/28/24 08:30 16 05/28/24 08:28 66 97 05/28/24 08:24 71 122/69 05/28/24 08:23 70 99 05/28/24 08:18 73 97 05/28/24 08:13 73 97 05/28/24 08:10 83 133/72 05/28/24 08:08 81 97 05/28/24 08:03 90 95 05/28/24 07:58 79 97 05/28/24 07:55 80 133/82 05/28/24 07:53 77 96 05/28/24 07:48 80 95 05/28/24 07:43 82 97 05/28/24 07:39 83 135/78 05/28/24 07:38 84 95 05/28/24 07:33 84 97 05/28/24 07:28 82 98 05/28/24 07:24 97.7 F 18 05/28/24 07:24 16 05/28/24 07:24 Room Air 05/28/24 07:24 77 133/63 05/28/24 07:23 74 95 05/28/24 07:18 77 96 05/28/24 07:13 79 97 05/28/24 07:09 83 126/64 05/28/24 07:08 72 94 05/28/24 07:03 76 94 05/28/24 06:58 74 95 05/28/24 06:54 73 122/64 05/28/24 06:53 72 95 05/28/24 06:48 70 95 05/28/24 06:43 81 96 05/28/24 06:39 73 121/64 05/28/24 06:38 70 95 05/28/24 06:33 72 94 05/28/24 06:28 73 95 05/28/24 06:25 75 121/68 05/28/24 06:23 70 95 05/28/24 06:18 72 94 05/28/24 06:13 74 97 05/28/24 06:09 82 132/68 05/28/24 06:08 79 97 05/28/24 06:05 18 05/28/24 06:03 81 96 05/28/24 06:00 97.7 F 05/28/24 05:58 79 95 05/28/24 05:54 81 130/60 05/28/24 05:53 77 96 05/28/24 05:48 86 97 05/28/24 05:43 75 96 05/28/24 05:39 85 122/69 05/28/24 05:38 75 95 05/28/24 05:33 78 96 05/28/24 05:28 80 97 05/28/24 05:25 75 118/67 05/28/24 05:23 72 94 05/28/24 05:20 16 05/28/24 05:18 69 96 05/28/24 05:13 65 94 05/28/24 05:09 73 112/64 05/28/24 05:08 70 95 05/28/24 05:03 74 95 05/28/24 04:58 69 96 05/28/24 04:55 77 119/68 05/28/24 04:53 69 95 05/28/24 04:48 70 95 05/28/24 04:43 67 96 05/28/24 04:39 71 113/61 05/28/24 04:38 66 95 05/28/24 04:33 67 94 05/28/24 04:28 67 95 05/28/24 04:24 66 114/63 05/28/24 04:23 69 95 05/28/24 04:20 22 05/28/24 04:18 69 94 05/28/24 04:13 82 97 05/28/24 04:10 100 H 114/81 05/28/24 04:08 81 95 05/28/24 04:03 84 96 05/28/24 04:00 97.7 F 05/28/24 03:58 77 97 05/28/24 03:55 88 124/84 05/28/24 03:53 100 H 97 05/28/24 03:48 82 97 05/28/24 03:43 90 98 05/28/24 03:38 86 98 05/28/24 03:33 75 94 05/28/24 03:30 20 05/28/24 03:28 71 96 05/28/24 03:25 68 118/67 05/28/24 03:23 70 95 PG Care Time/CCT Total # of Minutes Spent Total Time Spent with Patient: Total time spent is greater than 50% in coordination of care (as documented) at patient's floor/unit and/or counseling patient: Coding Level of Care Code 21664 SUB INP/OBS CARE 08/09MIN
[2024-05-28] MEDS: METOCLOPRAMIDE HCL INJ 5 MG/ML 2 ML VIAL IV PRN (15:58)
[2024-05-28] MEDS: BETAMETH SOD PHOS/ACETATE IA 6 MG/ML ONE (16:55)
[2024-05-28] MEDS: OXYTOCIN 30 UNITS/NSS 30 UNITS/500 ML BAG IV PRN (19:25)
[2024-05-28] MEDS ORDERED: OXYTOCIN 30 UNITS/NSS 30 UNITS/500 ML BAG IV PRN (19:50)
[2024-05-28] MEDS ORDERED: bisacodyL 10 MG SUPP PR PRN (19:50)
[2024-05-28] MEDS ORDERED: oxyCODONE/ACETAMINOPHEN 5mg/325mg TAB PO PRN (19:50)
[2024-05-28] MEDS ORDERED: HYDROCORTISONE ACETATE 25 MG SUPP PR PRN (19:50)
[2024-05-28] MEDS ORDERED: ACETAMINOPHEN 325 MG TAB PO PRN (19:50)
--- NOTE | 2024-05-28 19:59 | Delivery Summary ---
Vaginal Delivery Summary Date of Service May 28, 2024 Vaginal Delivery Summary and 1st Degree LAC (vaginal ) Patient is a 28-year-old G1, P0 female who had presented to labor and delivery for induction of labor because of preeclampsia. She has been on magnesium sulfate per protocol. A cervical balloon was successfully placed and Pitocin augmentation was initiated per labor and delivery protocol. Membranes were ruptured for clear fluid after the cervical balloon was expelled. She received epidural analgesia which was effective. At 6 cm dilation, an IUPC placed placed to further assess uterine contraction strength. After approximately an hour of adequate uterine contractions, cervical exam was unchanged. There was also development of late decelerations pattern noted. These occurred for approximately half an hour. With position change, the late decelerations resolved and the heart rate pattern became reactive although decreased [id number] variability. She then progressed to full dilation with the urge to push. She pushed effectively over intact perineum for delivery of a viable female . After the head was delivered the rest the delivered with ease and was placed on the mother's abdomen for further attention and drying. There was a spontaneous cry initially but tone was decreased. After 1 minute, the cord was clamped and cut and the taken to the baby bed for further stimulation and evaluation. After cord blood was obtained, the placenta was expressed intact with a three-vessel cord. bleeding was controlled with dilute Pitocin and fundal massage. She was noted to have bilateral labial superficial abrasions which were not bleeding and therefore not repaired. A first-degree vaginal tear was bleeding and therefore repaired with 3-0 chromic in the usual fashion. Mother and infant were stable after delivery. QBL is 204 cc. [facility] Vaginal Delivery Charge Delivery Type Details: and 1st Degree LAC (vaginal )
--- NOTE | 2024-05-28 20:31 | Anesthesia Procedure Note ---
Date of Service May 28, 2024 Anesthesia Post Epidural Note Vital Signs Vital Signs: Temp Pulse Resp BP Pulse Ox O2 Del Method 36.4 C L 89 16 141/88 H 99 Room Air 05/28/24 19:35 05/28/24 20:28 05/28/24 19:35 05/28/24 20:24 05/28/24 20:28 05/28/24 07:24 Notes Mental Status: alert / awake / arousable Nausea / Vomiting: adequately controlled Pain: adequately controlled Airway Patency, RR, SpO2: stable & adequate BP & HR: stable & adequate Hydration State: stable & adequate Neuraxial Anesthesia: was administered and sensory block is resolving Anesthetic Complications: no major complications apparent and Pt Satisfied with anesthetic care Epidural: Removed without complications and With tip intact
--- NOTE | 2024-05-29 06:16 | Obstetrical Progress Note ---
Date of Service <Sean Cisneros MD - Last Filed: 05/29/24 08:00> May 29, 2024 Assessment & Plan <Sean Cisneros MD - Last Filed: 05/29/24 08:00> (1) Preeclampsia: Trimester: third trimester Qualified Code(s): O14.93 - Unspecified pre-eclampsia, third trimester (2) with 36 completed weeks gestation: (3) care and examination: Plan PPD#1: MgSO4 drip still in place (until ~20:00), currently running 50ml/hr, BP has been mostly stable, no sx Continue routine care, progress diet as tolerated Rh+, gbs -, ri, H/H & vitals noted Possible DC tomorrow if BP stable off Mg <Gabriella Solomon MD, FACOG - Last Filed: 05/29/24 08:19> (1) Preeclampsia: (2) with 36 completed weeks gestation: (3) care and examination: Plan PPD#1: MgSO4 drip still in place (until ~20:00), currently running 50ml/hr, BP has been mostly stable, no sx Continue routine care, progress diet as tolerated Rh+, gbs -, ri, H/H & vitals noted Transfer to floor after MgSO4 is D/C'd and BP's are stable. Subjective <Sean Cisneros MD - Last Filed: 05/29/24 08:00> Ambulation: ambulating normally Voiding: no voiding problems Passing Gas:: Yes Diet Tolerance:: regular diet Lochia:: Small Feeding Type:: breast feeding Kory is a 28 y/o female who is PPD#1 following delivery at 36 3/7 weeks. Reports minimal pain/soreness. Feels drowsy from the medication but otherwise well. No LOPEZ, visual disturbances, SOB Ha in place, was able to eat last night, not walking around but got up and changed beds on her own Having appropriate lochia Currently breast feeding Constitutional: no fever, no chills or no sweats Respiratory: no dyspnea Cardiovascular: no chest pain, no palpitations or no calf pain Breast: no breast pain Genitourinary (female): no dysuria Neurologic: no headache(s) no changes in vision, no headaches Physical Exam <Sean Cisneros MD - Last Filed: 05/29/24 08:00> General: Alert, oriented. No acute distress. Cardiac: Regular rate and rhythm, no murmurs, rubs, or gallops. Respiratory: Clear to auscultation bilaterally, no wheezes/rales/rhonchi. No increased work of breathing. Symmetrical chest rise. No respiratory distress. Abdomen: Soft, nontender, nondistended. Bowel sounds present. Uterus: Uterine fundus firm, nontender. Lower extremities: No lower extremity edema or swelling. No deep calf pain. Results & Data <Sean Cisneros MD - Last Filed: 05/29/24 08:00> Vital Signs (Past 12 Hours) Vital Signs Temp Pulse Resp BP Pulse Ox 05/29/24 06:07 75 97 05/29/24 06:02 75 99 05/29/24 06:00 18 05/29/24 05:48 73 141/89 H 05/29/24 05:43 74 98 05/29/24 05:42 65 158/96 H 05/29/24 05:38 75 97 05/29/24 05:33 77 96 05/29/24 05:28 73 98 05/29/24 05:23 76 95 05/29/24 05:18 73 97 05/29/24 05:13 78 98 05/29/24 05:08 80 94 05/29/24 05:03 72 97 05/29/24 05:00 16 05/29/24 04:58 72 96 05/29/24 04:53 76 92 05/29/24 04:48 70 92 05/29/24 04:43 67 95 05/29/24 04:42 68 120/79 05/29/24 04:38 67 95 05/29/24 04:33 67 95 05/29/24 04:28 68 95 05/29/24 04:23 68 95 05/29/24 04:18 69 95 05/29/24 04:13 68 95 05/29/24 04:08 67 95 05/29/24 04:03 68 95 05/29/24 04:00 16 05/29/24 03:58 69 95 05/29/24 03:53 69 95 05/29/24 03:48 69 95 05/29/24 03:43 70 95 05/29/24 03:42 77 124/77 05/29/24 03:38 72 96 05/29/24 03:33 71 96 05/29/24 03:28 74 95 05/29/24 03:23 70 96 05/29/24 03:18 74 95 05/29/24 03:13 77 95 05/29/24 03:08 76 95 05/29/24 03:03 73 95 05/29/24 03:00 16 05/29/24 02:58 73 95 05/29/24 02:53 74 95 05/29/24 02:48 74 96 05/29/24 02:43 73 96 05/29/24 02:42 85 114/71 05/29/24 02:38 74 96 05/29/24 02:33 72 95 05/29/24 02:28 71 96 05/29/24 02:23 72 96 05/29/24 02:18 71 96 05/29/24 02:13 72 96 05/29/24 02:08 70 97 05/29/24 02:03 68 97 05/29/24 02:00 16 05/29/24 01:58 74 97 05/29/24 01:53 79 98 05/29/24 01:48 80 96 05/29/24 01:43 88 99 05/29/24 01:42 72 131/86 05/29/24 01:38 76 96 05/29/24 01:33 81 97 05/29/24 01:28 79 96 05/29/24 01:23 81 96 05/29/24 01:18 79 95 05/29/24 01:13 78 96 05/29/24 01:08 82 95 05/29/24 01:03 75 95 05/29/24 01:00 16 05/29/24 00:58 75 95 05/29/24 00:53 77 96 05/29/24 00:48 78 96 05/29/24 00:43 82 94 05/29/24 00:42 76 129/80 05/29/24 00:38 78 95 05/29/24 00:33 79 96 05/29/24 00:28 76 96 05/29/24 00:23 77 95 05/29/24 00:18 75 96 05/29/24 00:13 73 96 05/29/24 00:08 91 H 97 05/29/24 00:03 93 H 98 05/29/24 00:00 16 05/28/24 23:58 76 96 05/28/24 23:53 75 95 05/28/24 23:48 74 95 05/28/24 23:43 76 96 05/28/24 23:42 81 118/71 05/28/24 23:38 76 95 05/28/24 23:33 76 95 05/28/24 23:28 72 96 05/28/24 23:23 74 96 05/28/24 23:18 80 96 05/28/24 23:15 36.5 C 16 05/28/24 23:15 16 05/28/24 23:13 78 95 05/28/24 23:08 77 95 05/28/24 23:03 76 96 05/28/24 22:58 75 96 05/28/24 22:53 68 97 05/28/24 22:48 76 96 05/28/24 22:43 72 97 05/28/24 22:42 80 128/79 05/28/24 22:38 68 95 05/28/24 22:33 67 96 05/28/24 22:28 65 95 05/28/24 22:23 65 95 05/28/24 22:18 63 95 05/28/24 22:13 65 94 05/28/24 22:08 83 98 05/28/24 22:03 84 97 05/28/24 22:00 16 05/28/24 21:58 68 93 05/28/24 21:53 67 94 05/28/24 21:48 64 95 05/28/24 21:43 68 97 05/28/24 21:39 71 149/87 H 05/28/24 21:38 79 99 05/28/24 21:33 69 94 05/28/24 21:28 67 94 05/28/24 21:24 68 144/81 H 05/28/24 21:23 68 95 05/28/24 21:18 68 96 05/28/24 21:13 75 100 05/28/24 21:09 78 129/83 90 05/28/24 21:08 63 95 05/28/24 21:03 63 95 05/28/24 21:00 16 05/28/24 21:00 16 05/28/24 20:58 74 99 05/28/24 20:54 68 145/92 H 05/28/24 20:53 65 95 05/28/24 20:48 70 96 05/28/24 20:43 69 99 05/28/24 20:39 76 144/92 H 05/28/24 20:38 87 98 05/28/24 20:33 73 100 05/28/24 20:28 89 99 05/28/24 20:24 71 141/88 H 05/28/24 20:23 71 97 05/28/24 20:18 74 97 05/28/24 20:13 72 97 05/28/24 20:09 72 138/87 05/28/24 20:08 72 98 05/28/24 20:03 77 96 05/28/24 20:00 16 05/28/24 19:58 71 98 05/28/24 19:54 75 128/83 05/28/24 19:53 75 98 05/28/24 19:48 73 97 05/28/24 19:43 79 97 05/28/24 19:38 85 97 05/28/24 19:36 85 131/81 05/28/24 19:35 36.4 C L 16 05/28/24 19:33 85 98 05/28/24 19:28 99 H 98 05/28/24 19:23 74 96 05/28/24 19:19 16 05/28/24 19:19 36.4 C L 16 05/28/24 19:18 91 H 98 05/28/24 19:16 85 86 L 05/28/24 19:13 78 97 05/28/24 19:08 84 96 05/28/24 19:06 96 H 87 L 05/28/24 19:03 92 H 98 05/28/24 19:00 16 05/28/24 19:00 18 05/28/24 19:00 18 05/28/24 18:58 81 97 05/28/24 18:53 86 97 05/28/24 18:48 75 95 05/28/24 18:43 89 94 05/28/24 18:38 94 H 100 05/28/24 18:37 70 130/62 05/28/24 18:33 77 98 05/28/24 18:28 74 95 05/28/24 18:23 81 97 05/28/24 18:18 83 97 05/28/24 18:13 75 94 Laboratory Results 05/29/24 06:03 Supervising Physician <Gabriella Solomon MD, FACOG - Last Filed: 05/29/24 08:19> Co-Signing Physician Notes Resident Physician Supervision Note: I interviewed and examined the patient. Discussed with Dr. Cisneros and agree with findings and plan as documented in the note. Any exceptions or clarifications are listed here: [None] Documented By: Gabriella Solomon MD, FACOG Resident Activity Tracking <Sean Cisneros MD - Last Filed: 05/29/24 08:00> Resident Involvement: Resident Care Provided Care Provided: Adult Hospital Medicine and OB Delivery
[2024-05-29 06:27] LABS: Hematocrit (blood only) 39.4 % (37.0-47.0); Hemoglobin 13.2 g/dl (12.0-16.0); Mean Corpuscular Hemoglobin 29.4 pg (25.0-34.0); Mean Corpuscular Hgb Conc 33.5 g/dL (32.0-36.0); Mean Corpuscular Volume 87.8 fL (80.0-100.0); Mean Platelet Volume 11.1 fL (9.4-12.4); Platelet Count 219 K/uL (130-400); RDW Coefficient of Variation 14.6 % (11.5-14.5); RDW Standard Deviation 46.6 fL (36.4-46.3); Red Blood Count 4.49 M/uL (4.20-5.40); White Blood Count 17.81 K/ul (4.8-10.8)
[2024-05-29] MEDS: OXYTOCIN 20 UNITS/1002ML LR IV ONE (07:37)
[2024-05-29] MEDS: DIPHTHER/TETAN/PERTUS Vaccine (Tdap, Adol/Adult) 0.5mL IM ONE (07:37)
[2024-05-29] MEDS: DOCUSATE SODIUM 100 MG CAP PO SCH (07:38)
[2024-05-29] MEDS: PRENATAL VITAMIN 1 TAB PO SCH (08:19)
[2024-05-29] MEDS: NIFEdipine 10 MG CAP PO STA (18:18)
[2024-05-29] MEDS: bisacodyL 5 MG TABEC PO SCH (20:48)
[2024-05-29] MEDS: NIFEdipine EXTENDED REL 30 MG TABCR PO SCH (20:48)
--- NOTE | 2024-05-30 06:15 | Obstetrical Progress Note ---
Date of Service May 30, 2024 Assessment & Plan (1) Preeclampsia: (2) with 36 completed weeks gestation: (3) care and examination: Plan PPD#2: Taken off MgSO4 drip & moved to unit 05/29 ~22:00, BP has been stable since, no sx Continue routine care, progress diet as tolerated Rh+, gbs -, ri, H&H wnl, vss - continue to monitor Possible DC tomorrow Admission and Anticipated Discharge Date Admission Date: May 27, 2024 Supervising Physician Co-Signing Physician Notes Resident Physician Supervision Note: I was present with Dr. Cisneros during the history and exam. I discussed the case with the resident and agree with the findings and plan as documented in the note. Any exceptions or clarifications are listed here: stable, no lopez or visual change. no ruq pain. abd soft ff 2 down nt, ext nt calves. ppd#2 s/p and 24hr magnesium, now requiring new onset anti-htn meds. bp has responded thus far. routine care. breast pump. Documented By: Nohemy Williamson MD, FACOG Subjective Kory is a 28 y/o female who is PPD#2 following delivery at 36 3/7 weeks. Reports minimal pain/soreness. No LOPEZ, visual disturbances, SOB Feels better (less weak, more alert) than yesterday Has not had full meal but is keeping down protein shakes Ambulating, voiding normally, having appropriate lochia Currently breast feeding Review of Systems 2 Constitutional: no fever, no chills and no sweats Respiratory: no dyspnea Cardiovascular: no chest pain, no palpitations and no calf pain Genitourinary: no dysuria Neurologic: no headache(s) Physical Exam 2 Physical Exam: General: Alert, oriented. No acute distress. Cardiac: Regular rate and rhythm, no murmurs, rubs, or gallops. Respiratory: Clear to auscultation bilaterally, no wheezes/rales/rhonchi. No increased work of breathing. Symmetrical chest rise. No respiratory distress. Abdomen: Soft, nontender, nondistended. Bowel sounds present. Uterus: Uterine fundus firm, nontender. Lower extremities: No lower extremity edema or swelling. No deep calf pain. Results & Data Vital Signs (Past 12 Hours) Vital Signs Temp Pulse Pulse Resp BP BP Pulse Ox 05/30/24 03:11 132/75 05/29/24 23:50 134/89 05/29/24 23:00 37.1 C 65 18 142/94 H 98 05/29/24 20:45 83 125/89 05/29/24 19:30 18 05/29/24 19:22 94 H 97 05/29/24 19:17 96 H 97 05/29/24 19:12 96 05/29/24 19:12 98 H 05/29/24 19:12 91 H 133/81 05/29/24 19:08 97 H 93 05/29/24 19:07 98 H 94 05/29/24 19:02 102 H 97 05/29/24 18:57 106 H 97 05/29/24 18:52 104 H 97 05/29/24 18:47 97 H 97 05/29/24 18:42 85 99 05/29/24 18:41 74 144/93 H 05/29/24 18:39 79 149/101 H 05/29/24 18:37 82 100 05/29/24 18:32 77 99 05/29/24 18:27 70 99 05/29/24 18:22 71 93 05/29/24 18:18 74 151/100 H 05/29/24 18:17 77 100 05/29/24 18:12 67 99 O2 Del Method 05/30/24 03:11 05/29/24 23:50 05/29/24 23:00 Room Air 05/29/24 20:45 05/29/24 19:30 05/29/24 19:22 05/29/24 19:17 05/29/24 19:12 05/29/24 19:12 05/29/24 19:12 05/29/24 19:08 05/29/24 19:07 05/29/24 19:02 05/29/24 18:57 05/29/24 18:52 05/29/24 18:47 05/29/24 18:42 05/29/24 18:41 05/29/24 18:39 05/29/24 18:37 05/29/24 18:32 05/29/24 18:27 05/29/24 18:22 05/29/24 18:18 05/29/24 18:17 05/29/24 18:12 Laboratory Results 05/30/24 05:35 Resident Activity Tracking Resident Involvement: Resident Care Provided Care Provided: Adult Hospital Medicine and OB Delivery (1) Preeclampsia Trimester: third trimester Qualified Code(s): O14.93 - Unspecified pre- eclampsia, third trimester
[2024-05-30 06:18] LABS: Hematocrit (blood only) 41.1 % (37.0-47.0); Hemoglobin 13.5 g/dl (12.0-16.0)
[2024-05-30] MEDS: IBUPROFEN 600 MG TAB PO PRN (06:18)
[2024-05-30 23:41] VITALS: RESP 16
--- NOTE | 2024-05-31 05:31 | Obstetrical Progress Note ---
Date of Service <Sean Cisneros MD - Last Filed: 05/31/24 06:57> May 31, 2024 Assessment & Plan <Sean Cisneros MD - Last Filed: 05/31/24 06:57> (1) Preeclampsia: Trimester: third trimester Qualified Code(s): O14.93 - Unspecified pre-eclampsia, third trimester (2) with 36 completed weeks gestation: (3) care and examination: Plan PPD#3. Rh+, gbs -, ri BP has remained stable, pt asymptomatic Safe to DC w procardia, f/u for BP check <Zara Selby MD - Last Filed: 05/31/24 07:51> (1) Preeclampsia: (2) with 36 completed weeks gestation: (3) care and examination: Subjective <Sean Cisneros MD - Last Filed: 05/31/24 06:57> Kory is a 28 y/o female who is PPD#3 following delivery at 36 3/7 weeks. Notes some dehydration and possible dizziness d/t pumping breast milk + not dri nking enough water Reports minimal pain/soreness. No LOPEZ, visual disturbances, SOB Has been tolerating meals, ambulating, voiding normally Having appropriate lochia Planning to exclusively breastfeed Constitutional: no fever, no chills or no sweats Respiratory: no dyspnea Cardiovascular: no chest pain, no palpitations or no calf pain Breast: no breast pain Genitourinary (female): no dysuria Neurologic: no headache(s) Physical Exam <Sean Cisneros MD - Last Filed: 05/31/24 06:57> General: Alert, oriented. No acute distress. Cardiac: Regular rate and rhythm, no murmurs, rubs, or gallops. Respiratory: Clear to auscultation bilaterally, no wheezes/rales/rhonchi. No increased work of breathing. Symmetrical chest rise. No respiratory distress. Abdomen: Soft, nontender, nondistended. Bowel sounds present. Uterus: Uterine fundus firm, nontender. Lower extremities: No lower extremity edema or swelling. No deep calf pain. Results & Data <Sean Cisneros MD - Last Filed: 05/31/24 06:57> Vital Signs (Past 12 Hours) Vital Signs Temp Pulse Resp BP BP Pulse Ox O2 Del Method 05/31/24 02:55 148/92 H 05/30/24 23:40 36.8 C 77 16 96 Room Air 05/30/24 23:31 145/92 H 05/30/24 20:45 36.5 C 80 18 141/93 H 97 Room Air 05/30/24 20:45 Room Air 05/30/24 20:13 76 16 170/102 H 98 Room Air 05/30/24 19:15 37.1 C 78 18 155/92 H 98 Room Air Supervising Physician <Zara Selby MD - Last Filed: 05/31/24 07:51> Co-Signing Physician Notes Resident Physician Supervision Note: I interviewed and examined the patient. Discussed with Dr. Cisneros and agree with findings and plan as documented in the note. Any exceptions or clarifications are listed here: Procardia 30xl QHS to continue. Short interval f/u for BP check after this weekend recommended, scheduling mitzi sent to office, patient counseled this AM on taking medication without missed doses including tonight and s/sx to call for. Documented By: Zara Selby MD, FACOG Resident Activity Tracking <Sean Cisneros MD - Last Filed: 05/31/24 06:57> Resident Involvement: Resident Care Provided Care Provided: Adult Hospital Medicine and OB Delivery
[2024-05-31] MEDS: BENZOCAINE 20% SPRY 85 APPLN/85 GM CAN EXT PRN (08:23)
[2024-05-31 10:08] VITALS: O2SAT 97
[2024-05-31 13:03] VITALS: PULSE 86; TEMP 97.9
[2024-05-31 13:11] VITALS: BP 143/95
== END 2024-05-31 14:00 | disposition home or self-care (01) | DRG 807 ==
LOC: OPB 14:44 → 4S1 14:48 → 4E2 05-29 21:41